=== PATIENT | female | born 1970 | race Caucasian/White ===

== ENCOUNTER 2016-07-08 12:53 | Outpatient (CLI) | payer OTHER ==
[~2016-07-08 12:53] MED LIST: DOCUSATE SODIU100 MG PO; IBUPROFEN600 MG PO; MILK OF MA400 MG/5 M PO; NITROFURANTOIN100 M1 PO; NORCO1 TA1 PO; OXAYDO5 MG PO; PERCOCET1 TA1 PO; VICODIN EQUIVAL1 TAB PO; VISTARIL25 MG PO
--- NOTE | 2016-07-16 09:48 | DIAGNOSTIC IMAGING REPORT ---
PROCEDURE: MG BILATERAL SCREENING W/CAD INDICATION: SCREENING TECHNIQUE: Bilateral CC and MLO digital views. COMPARISON: Bilateral mammograms 06/19/2015, 07/03/2014 and left mammogram 02/27/2014. FINDINGS: Computer-aided detection applied. Moderately dense. Decreasing 4 mm sharply marginated faint nodule in the medial aspect of the left breast (previously 8 mm). No change. IMPRESSION: 1. Resolving 4 mm left breast benign intramammary lymph node versus cyst. RESULT CODE: 2- Benign finding(s). A. A negative report should not delay biopsy if a dominant or clinically suspicious mass is present. 10-15% of cancers are not identified by x-ray. B. A negative report may reinforce clinical impression. C. Adenosis and dense breasts may obscure an underlying neoplasm. D. False positive reports average 6-10%. E.. A yearly screening mammogram is recommended. A reminder letter will be scheduled.
== END 2016-07-08 23:00 ==
LOC: MAM SRH 12:53
DX: Z12.31 Encounter for screening mammogram for malignant neoplasm of breast (principal)